=== PATIENT | female | born 1985 | race Caucasian/White ===

== ENCOUNTER → 2017-03-06 | Outpatient (CLI) | payer BC ==
[~2017-03-06] MED LIST: PRENTAB26 PO
--- NOTE | 2017-03-06 16:42 | DIAGNOSTIC IMAGING REPORT ---
LEFT WRIST MIN 3 VIEWS ROUTINE CLINICAL HISTORY: WRIST PAIN pain COMPARISON: None. DISCUSSION: Mild degenerative change radiocarpal joints. Ordering osseous structures are unremarkable. No evidence for fracture or dislocation. There is no evidence for soft tissue swelling. IMPRESSION: Mild degenerative change radiocarpal joints. Otherwise negative study. Electronically signed by: Nato De Los Santos M.D. 03/06/2017 4:40 PM Dictated Date/Time: 03/06/2017 4:38 PM
== END | disposition home or self-care (01) ==
LOC: C.RADBC 16:15
PROVIDERS: ATTEND Family Medicine
DX: M25.532 Pain in left wrist (principal)

== ENCOUNTER → 2017-04-11 | Outpatient (CLI) | payer BC ==
[~2017-04-11] MED LIST changes: +OPTIRAY 320 IV PRN
[2017-04-11 17:03] LABS: BASO % 0.6 %; BASO ABS # 0.06 K/uL (0-0.2); COMPLETE YES; HEMATOCRIT 40.3 % (37-47); IG% 0.2 %; LYMPH % 27.9 %; MEAN CELL VOLUME 87.2 fL (80-100); MEAN CORPUSCULAR HEMOGLOBIN 29.7 pg (25-34); MEAN PLATELET VOLUME 11.1 fL (7.4-10.4); NEUT % 64.3 %; PLATELET COUNT 306 K/uL (130-400); RED BLOOD COUNT 4.62 M/uL (4.2-5.4); WHITE BLOOD COUNT 9.33 K/uL (4.8-10.8)
[2017-04-11 17:20] LABS: AMYLASE 57 U/L (25-115)
--- NOTE | 2017-04-11 17:48 | DIAGNOSTIC IMAGING REPORT ---
CT ABD/PELVIS IV AND ORAL CONT CLINICAL HISTORY: Right lower quadrant abdominal pain and vomiting. COMPARISON STUDY: None. TECHNIQUE: Following the IV administration of 116 mL of Optiray-320, CT scan of the abdomen and pelvis was performed from the lung bases to the proximal femurs. Images are reviewed in the axial, sagittal, and coronal planes. IV contrast was administered without complication. CT DOSE: 275.67 mGy.cm FINDINGS: Lower chest: The heart is normal in size and configuration, without pericardial effusion. The lung bases and pleural spaces are clear. Liver: There are several subcentimeter hepatic hypodensities. These likely represent cysts or biliary hamartomas. There is also a 14 mm hypodensity within the periphery of the right lobe of the liver posterior laterally. This cannot be further characterized on this study. Gallbladder: Unremarkable. Spleen: Normal in size and attenuation. Pancreas: Unremarkable. Adrenal glands: Unremarkable. Kidneys: There are bilateral renal hypodensities statistically representing cysts. The largest is located within the upper pole the left kidney measuring 16 mm. Bowel: There are no transition zones to indicate bowel obstruction. The appendix appears normal. There is no acute diverticulitis. Peritoneum: There is no intraperitoneal free air or abdominal ascites. Vasculature: The abdominal aorta is normal in course and caliber. Adenopathy: None. Pelvic viscera: The bladder, and pelvic viscera are unremarkable. Skeletal structures: No destructive osseous lesions are seen. IMPRESSION: 1. No evidence of bowel obstruction. No evidence of free air 2. Normal appendix 3. Bilateral renal hypodensities likely representing cysts 4. Scattered indeterminate low suspicion hepatic hypodensities. Electronically signed by: Sylvester Contreras M.D. 04/11/2017 5:47 PM Dictated Date/Time: 04/11/2017 5:42 PM
[2017-04-12 10:47] LABS: BLOOD UREA NITROGEN 12 mg/dl (7-18); BUN/CREATININE RATIO 16.8 (10-20); CALCIUM 8.7 mg/dl (8.5-10.1); CHLORIDE 105 mmol/L (98-107); CREATININE 0.73 mg/dl (0.60-1.20); GLUCOSE 79 mg/dl (70-99); SODIUM 140 mmol/L (136-145)
[2017-04-12 10:49] LABS: ALB/GLOB RATIO 0.9 (0.9-2); ALKALINE PHOSPHATASE 66 U/L (45-117); ALT/SGPT 23 U/L (12-78); AST/SGOT 15 U/L (15-37)
== END | disposition home or self-care (01) ==
LOC: C.CTS 14:22
PROVIDERS: ATTEND Family Medicine
DX: R10.84 Generalized abdominal pain (principal); N28.9 Disorder of kidney and ureter, unspecified

== ENCOUNTER → 2017-04-18 | Outpatient (CLI) | payer BC ==
[~2017-04-18] MED LIST changes: -OPTIRAY 320 IV PRN
--- NOTE | 2017-04-18 08:35 | DIAGNOSTIC IMAGING REPORT ---
ULTRASOUND ABDOMEN COMPLETE CLINICAL HISTORY: Right upper quadrant abdominal pain.. COMPARISON STUDY: Abdominal CT dated 04/11/2017. TECHNIQUE: Real-time, grayscale, and color flow sonography of the abdomen was performed. Images are reviewed in the transverse and longitudinal planes. FINDINGS: Liver: The liver is normal in size and echotexture. There is no intrahepatic biliary ductal dilatation. The main portal vein is patent. Scattered cysts measuring up to 9 mm are incidentally noted. Gallbladder: The gallbladder is normal in appearance. No gallstones are identified. There is no gallbladder wall thickening or pericholecystic fluid. A sonographic Reyes's sign is reportedly absent. The common bile duct measures up to 0.3 cm in diameter. Pancreas: Visualized portions of the pancreatic head and body are normal in appearance. Spleen: The spleen is normal in size and echotexture, measuring 10.7 cm in length. Kidneys: The kidneys are normal in size and echotexture. There is no hydronephrosis. The right kidney measures 11.2 cm in length and the left kidney measures 10.9 cm in length. No shadowing calculi are identified. Abdominal vasculature: Visualized portions of the abdominal aorta and IVC are normal in appearance. Ascites: None. IMPRESSION: No acute sonographic abnormality is identified. Electronically signed by: Armando Hinojosa M.D. 04/18/2017 8:33 AM Dictated Date/Time: 04/18/2017 8:32 AM
== END | disposition home or self-care (01) ==
LOC: C.ULTR 07:53
PROVIDERS: ATTEND Family Medicine
DX: R10.813 Right lower quadrant abdominal tenderness (principal)

== ENCOUNTER → 2017-05-16 | Outpatient (CLI) | payer BC ==
[~2017-05-16] MED LIST changes: +SINCALIDE INJ 1.3 MCG in SODIUM CHLORIDE 0.9% 100ML 100 ML IV SCH
--- NOTE | 2017-05-16 14:57 | DIAGNOSTIC IMAGING REPORT ---
NUCLEAR HEPATOBILIARY SCAN WITH EJECTION FRACTION IMAGING CLINICAL HISTORY: Right upper quadrant abdominal pain. COMPARISON STUDY: Abdominal ultrasound dated 04/18/2017. TECHNIQUE: Dynamic images of the liver and anterior abdomen were obtained every 5 minutes for a total of 60 minutes following the IV administration of 5.5mCi of technetium 99m Choletec. 1.3 mcg of sincalide was then injected with additional images acquired every 5 minutes for 45 minutes to calculate the gallbladder ejection fraction. FINDINGS: The hepatobiliary scan shows prompt and homogeneous hepatic uptake. There is visualized activity within the intra and extrahepatic biliary tree at 10 minutes, and within the gallbladder at 15 minutes. The biliary to bowel transit time is 75 minutes. On the sincalide imaging, the gallbladder ejection fraction was measured at 83%. IMPRESSION: 1. Unremarkable nuclear hepatobiliary scan. There is no scintigraphic evidence of cholecystitis. 2. The gallbladder ejection fraction measured 83% which is normal. Electronically signed by: Armando Hinojosa M.D. 05/16/2017 2:56 PM Dictated Date/Time: 05/16/2017 2:54 PM
== END | disposition home or self-care (01) ==
LOC: C.NUCL 12:28
PROVIDERS: ATTEND Family Medicine
DX: R10.811 Right upper quadrant abdominal tenderness (principal)

== ENCOUNTER → 2017-07-19 | Outpatient (CLI) | payer BC ==
[~2017-07-19] MED LIST changes: -SINCALIDE INJ 1.3 MCG in SODIUM CHLORIDE 0.9% 100ML 100 ML IV SCH
== END | disposition home or self-care (01) ==
LOC: C.PAPS 08:57
PROVIDERS: ATTEND Obstetrics & Gynecology
DX: Z01.419 Encounter for gynecological examination (general) (routine) without abnormal findings (principal)